=== PATIENT | female | born 1950 | race Caucasian/White ===

== ENCOUNTER 2016-10-22 17:43 | Inpatient (IN) | payer OTHER ==
[~2016-10-22] VITALS: Ht 170.2 cm; Wt 75.5 kg
[~2016-10-22 17:43] MED LIST: ALBUAER3 IN; ALPR0.25 PO; AMLO10TA2 PO; CIPR-187 PO; DULO20CA PO; LISI-646 PO; NAP500T PO; NOR5T PO; PANT40TA2 PO
[2016-10-22] MEDS ORDERED: cefTRIAXone 1GM/50ML D5W 50 ML IV ONE (19:15)
[2016-10-22] MEDS ORDERED: SODIUM CHLORIDE 0.9% 3,000 ML IV ONE (19:15)
[2016-10-22 19:33] LABS: Basophils # (auto) 0.1 uL; Basophils % (auto) 0.3 % (0.0-2.0); Eosinophils # (auto) 0 uL; Eosinophils % (auto) 0.1 % (0.0-7.0); Hematocrit 45.8 % (36.0-46.0); Hemoglobin 14.6 g/dL (12.2-16.2); Lymphocytes # (auto) 1.7 uL; Lymphocytes % (auto) 9.2 % (10.0-50.0); Mean Corpuscular Hemoglobin 27.6 pg (28.0-32.0); Mean Corpuscular Volume 86.4 fL (80.0-100.0); Mean Platelet Volume 13.5 fL (7.4-10.4); Monocytes # (auto) 1.3 uL; Monocytes % (auto) 6.8 % (0.0-12.0); Neutrophils # (auto) 15.8 uL; Neutrophils % (auto) 83.6 % (37.0-80.0); Platelet Count (auto) 343 10^3/uL (140-450); Red Cell Distribution Width 15.4 % (11.6-16.0); White Blood Cell 18.9 10^3/uL (4.4-10.8)
[2016-10-22 19:37] LABS: Albumin 3.1 g/dL (3.4-5.0); BUN/Creatinine Ratio 51.2; Calcium 11.5 mg/dL (8.5-10.1); Potassium 4.5 mmol/L (3.5-5.1)
[2016-10-22 19:40] LABS: Bilirubin, Total 0.5 mg/dL (0.2-1.0); Total Protein 8.5 g/dL (6.4-8.2)
[2016-10-22 19:42] LABS: Partial Thromboplastin Time 25.9 sec (22.64-33.71)
[2016-10-22] MEDS ORDERED: HYDROcodone-ACET 5/325MG TAB PO ONE (20:00)
[2016-10-22 20:13] LABS: INR 1.17 (0.9-1.15)
[2016-10-22 20:42] LABS: Urine Blood Negative /uL (Negative); Urine Color Yellow (Yellow); Urine Glucose Normal (Normal); Urine Hyaline Cast FEW /lpf (0 - 2); Urine Mucus FEW (None Seen); Urine Nitrite Negative (Negative); Urine RBC 11 /hpf (0 - 4); Urine Squamous Epithelial Cell FEW /hpf (<5); Urine Triple Phosphate Crystal MOD /hpf (None Seen); Urine pH 8.5 (5.0-8.0)
[2016-10-22 20:52] LABS: Urine Bilirubin POSITIVE (Negative); Urine Ketone 2+ (Negative)
[2016-10-22] MEDS ORDERED: ONDANSETRON HCL 4 MG/2 ML VIAL IV PRN (23:00)
[2016-10-22] MEDS ORDERED: SODIUM CHLORIDE 0.9% 1,000 ML IV ONE (23:00)
[2016-10-22] MEDS ORDERED: LEVOFLOXACIN 500MG 100 ML IV ONE (23:00)
[2016-10-22] MEDS ORDERED: HYDROmorphone HCL 2 MG/ML VL IV PRN (23:00)
[2016-10-23] VITALS (9 sets, daily range): BP systolic 106–139; BP diastolic 60–102
[2016-10-23] MEDS: ALPRAZolam 0.5 MG TAB PO SCH ×3 (05:53→22:00)
[2016-10-23 06:08] LABS: Basophils # (auto) 0.1 uL; Basophils % (auto) 0.4 % (0.0-2.0); Eosinophils # (auto) 0.1 uL; Eosinophils % (auto) 0.5 % (0.0-7.0); Hematocrit 35.9 % (36.0-46.0); Hemoglobin 11.5 g/dL (12.2-16.2); Lymphocytes # (auto) 1.3 uL; Lymphocytes % (auto) 8.9 % (10.0-50.0); Mean Corpuscular Hemoglobin 27.9 pg (28.0-32.0); Mean Corpuscular Hgb Conc. 32.1 g/dL (32.0-36.0); Mean Corpuscular Volume 87.1 fL (80.0-100.0); Mean Platelet Volume 12.5 fL (7.4-10.4); Monocytes # (auto) 1.1 uL; Neutrophils # (auto) 11.7 uL; Neutrophils % (auto) 82.2 % (37.0-80.0); Platelet Count (auto) 217 10^3/uL (140-450); White Blood Cell 14.2 10^3/uL (4.4-10.8)
[2016-10-23 06:35] LABS: Albumin 2.4 g/dL (3.4-5.0); BUN/Creatinine Ratio 72.9; Bilirubin, Total 0.4 mg/dL (0.2-1.0); Calcium 9.9 mg/dL (8.5-10.1); Potassium 3.7 mmol/L (3.5-5.1); Total Protein 6.5 g/dL (6.4-8.2)
[2016-10-23] MEDS ORDERED: cefTRIAXone 1GM/50ML D5W 50 ML IV SCH (09:00)
[2016-10-23] MEDS ORDERED: SOD CHL 0.45% 1,000 ML IV ONE (09:45)
[2016-10-23] MEDS ORDERED: LEVOFLOXACIN 500MG 100 ML IV SCH (10:00)
[2016-10-23] MEDS ORDERED: DULoxetine HCL 30 MG CAP PO SCH (10:00)
[2016-10-23] MEDS ORDERED: LISINOPRIL 20 MG TAB PO SCH (10:00)
[2016-10-23] MEDS ORDERED: PANTOPRAZOLE SODIUM 40 MG/10 ML VIAL IV SCH (10:00)
[2016-10-23] MEDS ORDERED: amLODIPine BESYLATE 5 MG TAB PO SCH (10:00)
[2016-10-23] MEDS ORDERED: ENOXAPARIN SOD 30 MG/0.3 ML SYRINGE SC SCH (10:00)
[2016-10-23] MEDS ORDERED: ENOXAPARIN SOD 40 MG/0.4 ML SYRINGE SC SCH (10:00)
[2016-10-23] MEDS: BOOST PLUS 8 ounce PO SCH ×2 (12:00→18:29)
[2016-10-23 12:41] LABS: Albumin 2.5 g/dL (3.4-5.0); BUN/Creatinine Ratio 57.9; Bilirubin, Total 0.4 mg/dL (0.2-1.0); Calcium 10.1 mg/dL (8.5-10.1); Potassium 3.7 mmol/L (3.5-5.1); Total Protein 6.9 g/dL (6.4-8.2)
[2016-10-23 13:12] LABS: Basophils # (auto) 0.1 uL; Basophils % (auto) 0.5 % (0.0-2.0); Eosinophils # (auto) 0 uL; Eosinophils % (auto) 0.3 % (0.0-7.0); Hematocrit 39.7 % (36.0-46.0); Lymphocytes # (auto) 1.4 uL; Lymphocytes % (auto) 9.8 % (10.0-50.0); Mean Corpuscular Hgb Conc. 32.7 g/dL (32.0-36.0); Mean Corpuscular Volume 85.4 fL (80.0-100.0); Mean Platelet Volume 14.6 fL (7.4-10.4); Monocytes % (auto) 6.9 % (0.0-12.0); Neutrophils # (auto) 12.1 uL; Neutrophils % (auto) 82.5 % (37.0-80.0); Platelet Count (auto) 211 10^3/uL (140-450); Red Cell Distribution Width 14.7 % (11.6-16.0); White Blood Cell 14.7 10^3/uL (4.4-10.8)
== END 2016-10-23 23:22 | DRG 871 ==
LOC: EDBD 17:43 → ER 17:49 → OVERFLOW 17:50 → EAST 23:25
PROVIDERS: ADMIT Family Medicine; ATTEND Internal Medicine
DX: A41.9 Sepsis, unspecified organism (principal); E43 Unspecified severe protein-calorie malnutrition; E87.0 Hyperosmolality and hypernatremia; N12 Tubulo-interstitial nephritis, not specified as acute or chronic; T83.511A Infection and inflammatory reaction due to indwelling urethral catheter, initial encounter; J44.9 Chronic obstructive pulmonary disease, unspecified; I10 Essential (primary) hypertension; E11.9 Type 2 diabetes mellitus without complications; E78.5 Hyperlipidemia, unspecified; E86.0 Dehydration; F32.9 Major depressive disorder, single episode, unspecified; N31.9 Neuromuscular dysfunction of bladder, unspecified; K59.00 Constipation, unspecified; Y84.6 Urinary catheterization as the cause of abnormal reaction of the patient, or of later complication, without mention of misadventure at the time of the procedure; Z87.440 Personal history of urinary (tract) infections; F03.90 Unspecified dementia, unspecified severity, without behavioral disturbance, psychotic disturbance, mood disturbance, and anxiety; E88.81 Metabolic syndrome and other insulin resistance; Z68.26 Body mass index [BMI] 26.0-26.9, adult; Z81.1 Family history of alcohol abuse and dependence; Z82.61 Family history of arthritis; Z88.5 Allergy status to narcotic agent
CPT/HCPCS: 36415; 51702; 80053; 80061; 81001; 83605; 85025; 85610; 85730; 87040; 96365; 96367; C9113; J0696; J1956